=== PATIENT | female | born 1950 | race Caucasian/White ===

== ENCOUNTER 2021-04-02 22:18 | Emergency (ER) | payer OTHER ==
[~2021-04-02] VITALS: Ht 162.6 cm; Wt 119.8 kg
[2021-04-02] MEDS ORDERED: CARVEDILOL6.25 M1 PO (22:49)
[2021-04-02] MEDS ORDERED: LISINOPRIL5 MG PO (22:49)
[2021-04-02] MEDS ORDERED: VITAMIN D310 MCG PO (22:50)
[2021-04-02] MEDS ORDERED: ASA81BEC PO (22:50)
[2021-04-02] MEDS ORDERED: ALLEGRA ALLERG180 MG PO (22:50)
[2021-04-02] MEDS ORDERED: PROTONIX 20 MG20 MG PO (22:51)
[2021-04-02] MEDS ORDERED: CRESTOR40 MG PO (22:51)
[2021-04-02] MEDS ORDERED: SINGULAIR4 M1 PO (22:51)
[2021-04-02] MEDS ORDERED: REMERON45 M1 PO (22:52)
[2021-04-03 00:44] VITALS: BP 157/72
== END 2021-04-03 00:45 | disposition home or self-care (01) ==
LOC: M.ERS 22:18
DX: K13.79 Other lesions of oral mucosa (principal); Z90.710 Acquired absence of both cervix and uterus